=== PATIENT | female | born 1985 | race Two or more races ===

== ENCOUNTER 2020-08-07 11:16 | Outpatient (REF) | payer MEDICARE, MEDICAID, SELFPAY | END 2020-08-07 11:17 | disposition home or self-care (01) | LOC: HO.HMGCLDS 11:16 | PROVIDERS: PCP Internal Medicine; Visit Provider Internal Medicine | DX: Z20.828 Contact with and (suspected) exposure to other viral communicable diseases (principal) | CPT/HCPCS: 36415; 87635 ==